=== PATIENT | male | born 1995 | race Caucasian/White ===

== ENCOUNTER 2020-01-19 17:06 | Emergency (ER) | payer SELFPAY ==
[2020-01-19] MEDS ORDERED: CYCLOBENZAPRINE HCL 10 MG TABLET PO ONE (18:30)
[2020-01-19] MEDS ORDERED: KETOROLAC TROMETHAMINE 60 MG/2 ML SDV IM ONE (18:30)
--- NOTE | 2020-01-19 18:32 | ER Document Report ---
HPI - HPI Patient complains to provider of: upper back pain Time Seen by Provider: 01/19/20 18:23 Onset: This morning Onset/Duration: Sudden Quality of pain: Achy Pain Level: 2 Context: 24-year-old male presents emergency department with complaints of sudden onset upper back pain. Reports he was shopping belts for bras with his when he had a sudden onset of pain to the back of his neck his shoulder. He denies trauma. He denies fever vomiting diarrhea. Patient does remember that this morning he lifted a heavy laundry basket. He took 1500 of Tylenol without relief of symptoms. Denies past medical history of neck injury. Associated Symptoms: None Exacerbated by: Movement Relieved by: Denies Similar symptoms previously: No Recently seen / treated by doctor: No Past Medical History - General Information source: Patient - Social History Smoking Status: Never Smoker Chew tobacco use (# tins/day): No Frequency of alcohol use: None Drug Abuse: None Occupation: [employer] Lives with: Family Family History: None Patient has suicidal ideation: No Patient has homicidal ideation: No - Medical History Medical History: Negative Surgical Hx: Negative - Immunizations Hx Diphtheria, Pertussis, Tetanus Vaccination: Yes Vertical Provider Document - CONSTITUTIONAL Agree With Documented VS: Yes Exam Limitations: No Limitations General Appearance: WD/WN, No Apparent Distress - INFECTION CONTROL TRAVEL OUTSIDE OF THE [place] IN LAST 30 DAYS: No - HEENT HEENT: Atraumatic, Normocephalic. negative: Conjuctival Injection - NECK Neck: Normal Inspection - No vertebral tenderness complains of pain to his trapezius muscle when moving his head side to side of chin to chest. negative: Lymphadenopathy-Left, Lymphadenopathy-Right - RESPIRATORY Respiratory: Breath Sounds Normal, No Respiratory Distress, Chest Non-Tender - CARDIOVASCULAR Cardiovascular: Regular Rate, Regular Rhythm - GI/ABDOMEN Gastrointestinal: Abdomen Soft, Abdomen Non-Tender - BACK Back: Normal Inspection - No obvious deformity good distal movement and sensation. Patient complains of pain to the right sided trapezius muscle. Patient reports area feels better with massage. - MUSCULOSKELETAL/EXTREMETIES Musculoskeletal/Extremeties: AYANNA YOU - NEURO Level of Consciousness: Awake, Alert, Appropriate Motor/Sensory: No Motor Deficit - DERM Integumentary: Warm, Dry Adult Front & Back Diagram: 1 - Patient reports area of tenderness. Which feels better after massage. Course - Re-evaluation Re-evalutation: 01/19/20 18:36 Patient was complaining of upper back pain. No erythema swelling or warmth. No fever vomiting or diarrhea. Pain was relieved with massage. Patient was treated with Toradol and Flexeril. Instructed to avoid heavy lifting massage as indicated follow-up with primary care provider for recheck within 1 week. He was instructed to return here for any concerns. He verbalized understanding to all instructions. - Vital Signs Vital signs: Temp Pulse Resp BP Pulse Ox 98.5 F 81 16 125/78 100 01/19/20 17:37 01/19/20 17:37 01/19/20 17:37 01/19/20 17:37 01/19/20 17:37 Discharge - Discharge Clinical Impression: right side trapezius strain Condition: Stable Disposition: HOME, SELF-CARE Instructions: Muscle Relaxers ([facility]), Muscle Strain ([facility]), Toradol Injection ([facility]) Additional Instructions: *You have been evaluated for a muscle strain *Take medication as prescribed *massage *ice packs-20 minutes on 20 minutes off as indicated *Avoid heavy lifting for 1 week *Follow up with a primary care provider within one week for recheck *Return to ED for worsening condition, changes, needs Prescriptions: Cyclobenzaprine HCl [Flexeril 10 Mg Tablet] 10 mg PO TID #15 tablet Forms: Elevated Blood Pressure Referrals: TAYLOR,MAKENNA [NO LOCAL MD] - Follow up as needed
[2020-01-19 18:54] VITALS: BP 131/76
== END 2020-01-19 18:50 | disposition home or self-care (01) ==
LOC: ER 17:06
DX: S46.911A Strain of unspecified muscle, fascia and tendon at shoulder and upper arm level, right arm, initial encounter (principal); M54.6 Pain in thoracic spine; X50.0XXA Overexertion from strenuous movement or load, initial encounter; Y93.E2 Activity, laundry
CPT/HCPCS: 99283; 96372; J1885